=== PATIENT | male | born 1995 | race Caucasian/White ===

== ENCOUNTER 2018-04-25 13:07 | Inpatient (IN) | payer MEDICAID, OTHER ==
[2018-04-25 13:54] LABS: PLATELET COUNT 350 10^3/uL (150-400)
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
[2018-04-25] MEDS ORDERED: OLANZapine DISINTEGR 5 MG TAB PO ONE ×2 (16:25→17:04)
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
--- NOTE | 2018-04-25 19:13 | ASMTTCLDSP ---
TLC Discharge Disposition Disposition: Answers: Admit Disposition Notes: Notes: In consultation with [facility] ED physician, Bridger Ritchie MD and on-call psychiatrist, Sumanth Dickson MD, both concurred that pt appears to meet 27-65 criteria requiring psychiatric hospitalization as pt appears to be at risk of harm to others due to a mental illness condition. Was patient given the Answers: Yes Inpatient Behavioral Health Prohibited Belongings List while in the ED? For inpatient Sumanth Dickson MD admission, the following psychiatrist agreed to accept patient for admission to Behavioral Health ([facility]): Type of Hold: Answers: M1/72-hour Hold Hold initiated by: Answers: Police Date Signed: 04/25/2018 07:12 PM Electronically Signed By:Bridger Connelly
[2018-04-25] MEDS ORDERED: LORazepam 0.5 MG TAB PO PRN (22:27)
[2018-04-25] MEDS ORDERED: MAG HYDROX/AL HYDROX/SIMETH 30 ML UDCUP PO PRN (23:06)
[2018-04-25] MEDS ORDERED: MAGNESIUM HYDROXIDE 30 ML UDCUP PO PRN (23:06)
--- NOTE | 2018-04-26 08:41 | ASMTBHMTP ---
Master Treatment Plan Master Treatment Plan Answers: Impaired Reality for: Date: 04/26/2018 Diagnosis on Admission: Bipolar Disorder Expected length of stay: 3-5 Days Reason for admission: Notes: Per TLC Evaluation - Pt. is a 23 year old male, never marries, no children, unemployed, homeless, with history of bipolar disorder with psychotic features, presented to the ED via police on M1 hold. Pt. had been seen on campus for the last three days with a knife and alerts had been notified. Pt. presented to police after he found out his description had been given. Per the news report pt had been changing his clothes in between sightings. Per M1 Hold "Kristin stated, he was being followed by the Mafia; stated he was looking for help with his friend (a knife); called random people his friends, they did not know him. Stated his knife talks to him and that he is an alien. At times, pt. speaks nonsensically and in code and other times he speaks in an uninteruptedable rant like stream of consciousness tangental manner about the mafia, police, russians and drugs. Patient's stated presenting problems: Notes: People, lots of people. People that are good people but pop pills. Patient's goals for treatment: Notes: Get out Patient's strengths: Notes: Everything Identify supports outside of hospital: Notes: Anyone Discharge criteria: Notes: Psychotic symptoms will be reduced or eliminated with return to baseline functioning in affect, thinking and behavior prior to discharge. Initial disposition plan/considerations: Notes: Go back to where I was, in [place]. Master Treatment Plan Required Signatures Psychiatrist signature: Answers: Deb Abernathy MD: RN on-shift signature: Answers: RN: Patient signature: Answers: Patient: Date Signed: 04/26/2018 08:40 AM Electronically Signed By:Anne-Marie Bauer
--- NOTE | 2018-04-26 09:16 | PDMN ---
Medical Necessity Medical necessity: [facility] [id number] Bipolar Disorders, Adult, IP Care: 23 y/o w/ bipolar d/o, current episode manic severe w/ psychotic features. M1 hold
[2018-04-26] MEDS: OLANZapine DISINTEGR 5 MG TAB PO PRN (12:32)
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
[2018-04-27] MEDS: NICOTINE POLACRILEX 2 MG GUM B PRN ×3 (06:24→10:52)
[2018-04-27] MEDS: OLANZapine DISINTEGR 5 MG TAB PO PRN (09:01)
[2018-04-27] MEDS: ACETAMINOPHEN 325 MG TAB PO PRN (09:57)
[2018-04-27] MEDS: risperiDONE 0.25 MG TAB PO SCH (19:35)
--- NOTE | 2018-04-27 22:55 | SOAPPROG ---
SOAP Progress Note Assessment/Plan: Assessment: 23yo with 2nd inpt psych admission in 2 months due to psychosis. Clinically presents BMD manic with psychotic f although also reports drug use and stated he used some LSD and ecstasy prior to admit, and THC daily. Police involved, with campus wide alert, which was reported in local news about this pt prior to admission. Pt with no insight into why anyone would be afraid of him using a pocket knife to clean his fingernails. But also talked of [place] mafia, and being called an alien. 04/27/18 18:37 slept 10.5hr. Pt reports not much recall of details between ambulance and inpt psych. but states he did recall meeting yesterday. Wants to d/c soon b/c has plans to perform as a rapper, and also now will be missing the 2 models he met on [employer] who flew out from [place] to attend a concert with him in [place], which he now can't brain picker at the airport b/c in hosp. "I'm a millionaire...well I have minus $56 in my account...but I give all the money I make to the street performers on [address] b/c I want to keep them there , I tip my hat and $50 falls out for them". Then talked about plans to start his own rehab center, better than being in psych wen like here where no one is being treated well, with a drug you probably never heard of, no one knows about it, called "Hexin, it's like a combination cocaine/ketamine..." Really feels he needs someone to Rx Vyvanse. Tried it out on streets and it really helped for my ADHD. also mentions Adderall, strattera. And adds that Benzotropine (d/cd on this last admit) "made me less hyperactive." Informed he was in local paper and news after incident leading to admission. Pt still focusing on "who called" the police, instead of why and how concerning his behavior must have been. then talked of all the "really nice people" he met in the dorm, strangers, "I gave my cross necklace to a kendra I met in the [place]kee[place] (at ), that's how well we connected, and that's a big deal because I'm Jainism... The [place]ian tomás was trying to get me to sell coke for them, and when I said 'no', they thought I was a surgical endoscopist and threatened me with possession...I was carrying my friend's knife..." States his family has a lot of substance use and psych illness, gf and a great uncle suicided, older sis with BMD, "whole family is depressed", and 2 uncles did time for a murder they didn't do. States he was tested at 10yo and dxd with ADHD but never took meds b/c family didn't believe in that. MSE: initially cooperative, good ec, dressed casually wearing sweatshirt and loose flowered pants, nml speech vol but incr rate, talkative, arguing and raising voice when placed on STC, .mood "I don't need to be here", affect full, tp/tc- somewhat immature, with grandiose delusions about being millionaire, also drug themes, Russians. elevated self-esteem. tangential and illogical thought processes. insists if placed on STC he will "go back to using and be overdosed and by 26(yo)", but if released at end of 72hrs, "will give up drugs and never use again...it's up to you." denied any SI/HI or AH/VH. lacking any insight. poor judgment. cognition seems intact. DX; BMD manic with psychotic f r/o substance induced psychosis cannabis use d/o, also reports occasional and recent hallucinogen use PLAN: -Discussed M-1 expiring tomorrow noon. Discussed options to sign in, discharge or STC. Pt wants to leave. Continues manic and with no insight. Placed on STC and explained right to 3rd constitution party notif, legal representation. Given his complete lack of insight, and med n/c after d/c from prior hospital, consider transfer of STC to outpatient setting with dual dx treatment focus. Also has DUI with court date in 06/25-jean-claude, could be given probation involving mental health treatment compliance stated "I want the same intensive care nurse that came here on Sat, (Anneliese R) he was going to be mine at [facility]." Has been on STC before. Took zyprexa 10mg prn yesterday and again today. Continue prn. Discussed med options for his sxs and he agreed to risperdal or haldol. States Risperdal sounded familiar from trial at but thinks he had s/e. Agrees to try again. Apparently was d/cd from [facility] on Latuda 40mg, benzotropine 0.5mg and hydroyxzine prn. Start Risperdal 0.5mg bid lower dose to minimize risk of s/e. If tolerated and helpful, note this also avail in long-acting injectable form. Refuses any offer of mood stabilizing med such as Li or VPS. Pt was reported to be immediately n/ c with meds after d/c from [facility] last month, although stated he "liked the benzo one" which was Benzotropine. Also states he heard of Haldol that it was good, and so he wouldn't mind trying it. Did sign MAREK for mother, and [facility]. Collateral from [facility] in am. Objective: Vital Signs Temp Pulse Resp BP Pulse Ox 36.7 C 84 16 118/78 97 04/27/18 06:00 04/27/18 06:00 04/27/18 06:00 04/27/18 06:00 04/27/18 06:00 - Time Spent With Patient Time Spent With Patient: 35min - Pending Discharge Pending Discharge Within 24 Hours: No Pending Discharge Within 48 Hours: No ICD10 Worksheet Patient Problems: Problems Problem Status Onset Acute psychosis Acute
[2018-04-28] MEDS: risperiDONE 0.25 MG TAB PO SCH ×2 (08:20→21:07)
[2018-04-28] MEDS: ACETAMINOPHEN 325 MG TAB PO PRN (11:21)
[2018-04-28] MEDS ORDERED: LORazepam 0.5 MG TAB PO PRN (11:28)
[2018-04-28] MEDS: NICOTINE POLACRILEX 2 MG GUM B PRN ×2 (12:38→13:52)
--- NOTE | 2018-04-28 13:50 | SOAPPROG ---
SOAP Progress Note Assessment/Plan: Assessment: Bipolar I Disorder, severe, most recent margaret, with anxious distress and mood- congruent psychotic features, complicated by substance use. Alcohol use disorder, severe, Stimulant use disorder, severe, Cannabis use disorder, severe , Hallucinogen use disorder, severe (see subjective/objective note). Patient is not safe to discharge at this time as patient continues to exhibit signs of margaret, and express margaret symptoms. Patient requires continued inpatient care because of current margaret, and requires inpatient level of care to stabilize in order to no longer be gravely disabled. Patient could benefit from continued inpatient hospitalization for crisis stabilization, safety, and medication evaluation. Patient could benefit from trial of Depakote ER for bipolar maintenance, to reduce likelihood of rehospitalization. Patient could benefit from referral to substance abuse treatment after discharge. Plan: (1) Psychotropic medications: After reviewing options, risks, and benefits patient agrees to continue current medications with following changes: Begin trial of Depakote ER 1,500 mg po QHS. Increase Risperidone to 1 mg BID. No other medication changes at this time as more time is needed to determine ongoing tolerability and efficacy. Plan is to continue to observe patient for response and side effects from medications, and ongoing monitoring and evaluation. (2) Review with patient informed consent and recommendations for psychotropic medication treatment listed below (3) Labs: VPA level Saturday AM (4) Therapy: continue milieu and group therapy (5) Further investigation including gathering information from patients relatives and review of past case records to inform treatment plan. (6) Safety/Wellness plan and follow-up outpatient appointments to be established prior to discharge. Next steps are for patient to meet with manager critical care to plan a safe discharge plan and establish outpatient services for ongoing treatment. (7) Confer with inpatient treatment team regarding treatment plan. (8) Legal status: [facility] (9) Consider discharge on if patient is in stable condition, safe, and has a safe discharge plan. (10) Substance abuse interventions: cannabis, alcohol/binge drinking, cocaine, methamphetamine, and hallucinogens PSYCHOTROPIC MEDICATION TREATMENT INFORMED CONSENT and RECOMMENDATIONS: Review nature of condition, diagnosis, and prognosis. Review nature and purpose of psychotropic medication treatment. Review type of psychotropic medications being ordered. Review risk and benefits of psychotropic medication treatment. Review probable length of time patient will need to take medications. Review risk and benefits of not undergoing psychotropic medication treatment. Review alternative treatments to psychotropic medications. Review psychotropic medications contraindications, drug-drug interactions, side effects, and importance of reporting any side effects to a psychiatric provider or nurse during inpatient hospitalization, and upon discharge to patients psychiatric outpatient provider, primary care provider, or other health resident care manager rn. Review importance of asking a nurse, psychiatric provider, or primary care provider any questions or problems concerning the psychotropic medications. Verify patient understands the information that has been provided, and understands, accepts, and agrees to psychotropic medications. Review patients safety plan and importance of patient to report to staff while hospitalized if patient is ever a danger to self/others, or unable to care for self, and upon discharge, the importance for patient to contact [facility] or [facility], or go to the nearest emergency room, if patient is ever a danger to self/others, or unable to care for self. Recommend that upon discharge patient establish medication management treatment with a psychiatric provider, establishes routine therapy appointments, and follow-up with primary care provider. Verify patient understands and agrees to these recommendations. 04/28/18 13:50 Subjective: Following up with patient for evaluation of margaret and safety. Patient reports, "Have no idea why I am here, I was just cleaning my finger nails with a pocket knife at ." Patient expresses the following psychiatric symptoms none. Patient reports taking medications as prescribed, and describes response to medications as good. Patient does not report undesirable side effects from the medications, and agrees to continue current medications. Patient reports appetite as good, and reports eating all meals. Patient describes 8 hours of sleep. Patient reports history of margaret episodes that last 5-6 days and occur about once every other month. Patient agrees to trial of Depakote ER 1,500 mg po QHS for bipolar maintenance. Patient agrees with plan to be on a mood stabilizer, Depakote, and to continue this medication after discharge to prevent decompensation, margaret, and likelihood of rehospitalization. Patient reports he was using "THC, cocaine, and Mayela" prior to his admission. Patient reports he was "on Mayela" when engaged by police at prior to his admission. Patient reports a long history of polysubstance abuse and reports he has a " mild substance abuse issue." Objective: Vital Signs Temp Pulse Resp BP Pulse Ox 36.3 C 74 16 122/90 H 98 04/28/18 06:00 04/28/18 06:00 04/28/18 06:00 04/28/18 06:00 04/28/18 06:00 NURSING REPORT: Consulted with nursing for update on patients progress in treatment. Nurses report patient is engaged in treatment, is attending groups, slept 9 hours, expresses the following psychiatric symptoms: severe anxiety, irritable; exhibits the following psychiatric symptoms: irritable, agitated, intrusive, grandiose, hyper-talkative; is eating all meals, is attending to ADLs , is taking medications as prescribed with no report of side effects, with no s/ s of EPS/akathisia, and denies SI/HI, denies A/V hallucinations, denies delusions. MSE: The patient presents casually dressed and with good hygiene, and looks stated age. Patient is sitting, posture is upright, and position is tense. Patient appears awake, alert, and responds appropriately and reasonably during interview. Patient is engaged, relates well to interviewer, and emotional facial expression is appropriate to situation and changes appropriately with topic. Patient is cooperative, makes comfortable eye contact, and movements are voluntary, deliberate, coordinated, and smooth and even with no inappropriate movements. Patient makes laryngeal sounds effortlessly and does not share conversation appropriately, often interrupting this MANAGER AVIATION; pace of conversation is rapid, and stream of talking is pressured; articulation is clear and understandable; word choice is effortless and appropriate for education level; completes sentences, rate is pressured and volume are appropriate. Patient reports mood as euthymic. Patients affect is expansive, and incongruent with mood. Patient has non-linear and illogical thinking, with loose associations, tangential thought, and grandiose. Patient denies suicidal and homicidal ideation, and denies hallucinations and delusions. Patient appears to be a poor historian with poor judgement and poor insight into current condition. Patient has no apparent dysfunction in recent or remote memory noted, and no evidence of gross cognitive dysfunction noted at any point during the interview. SUBSTANCE ABUSE BRIEF INTERVENTION: Brief intervention regarding the risks of cannabis, alcohol, cocaine, hallucinogens, and methamphetamine abuse is provided to patient with goal to reduce the risk of harm that could result from the continued use of these substances, with the general aim to investigate the problem, raise awareness of problem, develop a solution with the patient, recommend a specific change or activity, and motivate the patient toward change. Assess substance abuse behavior and give supportive advice about harm reduction, recommend a reduction in hazardous/at-risk consumption patterns, and facilitate referrals for additional specialized treatment with doggy daycare activities director. Intermediate goal is for the patient to quit use of substances and attend OP substance abuse treatment. Intervention focus on intermediate goals to allow for more immediate success in the treatment process to keep the patient motivated. Review following with patient: Cannabis use risks: Short- term use: impaired short-term memory, impaired motor coordination, altered judgement, in high doses paranoia and psychosis. Long-term use addiction, diminished life satisfaction and achievement, symptoms of chronic bronchitis, and increased risk of chronic psychosis disorders if predisposition to such disorders. In withdrawal anger, aggression irritability, anxiety and nervousness, decreased appetite or weight loss, restlessness, and sleep difficulties with strange dreams. Alcohol/Binge Drinking risks: short-term: injuries, violence, alcohol poisoning, risky sexual behaviors. Long-term: high blood pressure, stroke, liver disease, digestive problems, cancer, learning and memory problems, depression and anxiety, social problems, and alcohol dependence. Cocaine use risks: Short-term: erratic and violent behavior, panic attacks, paranoia, psychosis; heart rhythm problems, heart attack; stroke, seizure, coma. Long-term: Loss of sense of smell, nosebleeds, nasal damage and trouble swallowing from snorting; infection and of bowel tissue from decreased blood flow; poor nutrition and weight loss; lung damage from smoking. Methamphetamine use risks: Short-term: insomnia, irritability, aggressive behavior, hallucinations, delusions, intellectual deficits, anxiety, depression , convulsions, damage to blood vessels in the brain causing strokes, high fevers , collapse of the circulatory system. Long-term: damage to nerve pathways, maybe irreversibly; overstimulation to dopamine impairing dopamine transport and reducing efficiency of dopamine receptors, the reward system becomes worn out, leading to inability to experience pleasure for years. Patient reports he has a "mild" substance abuse history and reports he plans to continue to use THC daily. He states he will consider substance abuse treatment after discharge. - Time Spent With Patient Time Spent With Patient: 30 minutes, met with patient individually and with patient and treatment team. - Pending Discharge Pending Discharge Within 24 Hours: No Pending Discharge Within 48 Hours: No ICD10 Worksheet Patient Problems: Problems Problem Status Onset Acute psychosis Acute
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
[2018-04-28] MEDS: DIVALPROEX ER 500 MG TAB PO SCH (21:08)
--- NOTE | 2018-04-29 07:56 | SOAPPROG ---
SOAP Progress Note Assessment/Plan: Assessment: Bipolar I Disorder, severe, most recent margaret, with anxious distress and mood- congruent psychotic features, complicated by substance use. Alcohol use disorder, severe, Stimulant use disorder, sever, Cannabis use disorder, severe, Hallucinogen use disorder (see subjective/objective note). Patient is not safe to discharge at this time as patient continues to exhibit signs of margaret, and express margaret symptoms. Patient requires continued inpatient care because of current margaret, and requires inpatient level of care to stabilize in order to no longer be gravely disabled. Patient could benefit from continued inpatient hospitalization for crisis stabilization, safety, and medication evaluation. Patient could benefit from trial of Depakote ER for bipolar maintenance, to reduce likelihood of rehospitalization. Patient could benefit from referral to substance abuse treatment after discharge. Based on current presentation, consider discharge Saturday if patient is stable and has a safe discharge plan including referrals to outpatient substance abuse treatment. Plan: (1) Psychotropic medications: After reviewing options, risks, and benefits patient agrees to continue current medications with following changes: Discontinue Ativan. No other medication changes at this time as more time is needed to determine ongoing tolerability and efficacy. Plan is to continue to observe patient for response and side effects from medications, and ongoing monitoring and evaluation. (2) Review with patient informed consent and recommendations for psychotropic medication treatment listed below (3) Labs: VPA level Saturday AM (4) Therapy: continue milieu and group therapy (5) Further investigation including gathering information from patients relatives and review of past case records to inform treatment plan. (6) Safety/Wellness plan and follow-up outpatient appointments to be established prior to discharge. Next steps are for patient to meet with manager critical care to plan a safe discharge plan and establish outpatient services for ongoing treatment. (7) Confer with inpatient treatment team regarding treatment plan. (8) Legal status: [facility] (9) Consider discharge on Saturday if patient is in stable condition, safe, and has a safe discharge plan. (10) Substance abuse interventions: cannabis, alcohol/binge drinking, cocaine, methamphetamine, and hallucinogens PSYCHOTROPIC MEDICATION TREATMENT INFORMED CONSENT and RECOMMENDATIONS: Review nature of condition, diagnosis, and prognosis. Review nature and purpose of psychotropic medication treatment. Review type of psychotropic medications being ordered. Review risk and benefits of psychotropic medication treatment. Review probable length of time patient will need to take medications. Review risk and benefits of not undergoing psychotropic medication treatment. Review alternative treatments to psychotropic medications. Review psychotropic medications contraindications, drug-drug interactions, side effects, and importance of reporting any side effects to a psychiatric provider or nurse during inpatient hospitalization, and upon discharge to patients psychiatric outpatient provider, primary care provider, or other health home care provider. Review importance of asking a nurse, psychiatric provider, or primary care provider any questions or problems concerning the psychotropic medications. Verify patient understands the information that has been provided, and understands, accepts, and agrees to psychotropic medications. Review patients safety plan and importance of patient to report to staff while hospitalized if patient is ever a danger to self/others, or unable to care for self, and upon discharge, the importance for patient to contact [facility] or [facility], or go to the nearest emergency room, if patient is ever a danger to self/others, or unable to care for self. Recommend that upon discharge patient establish medication management treatment with a psychiatric provider, establishes routine therapy appointments, and follow-up with primary care provider. Verify patient understands and agrees to these recommendations. 04/29/18 07:57 Subjective: Following up with patient for evaluation of margaret and safety. Patient reports, "Feeling better, slept well last night, had a weird dream though. Check this out, I ran into someone that knows me by my rapper name." Patient expresses the following psychiatric symptoms none. Patient reports taking medications as prescribed, and describes response to medications as good. Patient does not report undesirable side effects from the medications, and agrees to continue current medications. Patient reports appetite as good, and reports eating all meals. Patient describes 8 hours of sleep, and reports feeling well rested. Objective: Vital Signs Temp Pulse Resp BP Pulse Ox 36.5 C 100 15 141/95 H 98 04/29/18 06:00 04/29/18 06:00 04/29/18 06:00 04/29/18 06:00 04/29/18 06:00 NURSING REPORT: Consulted with nursing for update on patients progress in treatment. Nurses report patient is engaged in treatment, is attending groups, slept 7.5 hours, expresses the following psychiatric symptoms: moderate anxiety ; exhibits the following psychiatric symptoms: irritable, agitated, intrusive, grandiose, hyper-talkative, hyperactive on the unit; is eating all meals, is attending to ADLs, is taking medications as prescribed with no report of side effects, with no s/s of EPS/akathisia, and denies SI/HI, denies A/V hallucinations, denies delusions. MSE: The patient presents casually dressed and with good hygiene, and looks stated age. Patient is sitting, posture is upright, and position is tense. Patient appears awake, alert, and responds appropriately and reasonably during interview. Patient is engaged, relates well to interviewer, and emotional facial expression is appropriate to situation and changes appropriately with topic. Patient is cooperative, makes comfortable eye contact, and movements are voluntary, deliberate, coordinated, and smooth and even with no inappropriate movements. Patient makes laryngeal sounds effortlessly and does not share conversation appropriately, often interrupting this CUSTOMER SERVICE CLERK; pace of conversation is rapid, and stream of talking is pressured; articulation is clear and understandable; word choice is effortless and appropriate for education level; completes sentences, rate is pressured and volume are appropriate. Patient reports mood as euthymic. Patients affect is expansive, and incongruent with mood. Patient has non-linear and illogical thinking, with loose associations, tangential thought, and grandiose. Patient denies suicidal and homicidal ideation, and denies hallucinations and delusions. Patient appears to be a poor historian with poor judgement and poor insight into current condition. Patient has no apparent dysfunction in recent or remote memory noted, and no evidence of gross cognitive dysfunction noted at any point during the interview. SUBSTANCE ABUSE BRIEF INTERVENTION: Brief intervention regarding the risks of cannabis, alcohol, cocaine, hallucinogens, and methamphetamine abuse is provided to patient with goal to reduce the risk of harm that could result from the continued use of these substances, with the general aim to investigate the problem, raise awareness of problem, develop a solution with the patient, recommend a specific change or activity, and motivate the patient toward change. Assess substance abuse behavior and give supportive advice about harm reduction, recommend a reduction in hazardous/at-risk consumption patterns, and facilitate referrals for additional specialized treatment with resident care supervisor. Intermediate goal is for the patient to quit use of substances and attend OP substance abuse treatment. Intervention focus on intermediate goals to allow for more immediate success in the treatment process to keep the patient motivated. Review following with patient: Cannabis use risks: Short- term use: impaired short-term memory, impaired motor coordination, altered judgement, in high doses paranoia and psychosis. Long-term use addiction, diminished life satisfaction and achievement, symptoms of chronic bronchitis, and increased risk of chronic psychosis disorders if predisposition to such disorders. In withdrawal anger, aggression irritability, anxiety and nervousness, decreased appetite or weight loss, restlessness, and sleep difficulties with strange dreams. Alcohol/Binge Drinking risks: short-term: injuries, violence, alcohol poisoning, risky sexual behaviors. Long-term: high blood pressure, stroke, liver disease, digestive problems, cancer, learning and memory problems, depression and anxiety, social problems, and alcohol dependence. Cocaine use risks: Short-term: erratic and violent behavior, panic attacks, paranoia, psychosis; heart rhythm problems, heart attack; stroke, seizure, coma. Long-term: Loss of sense of smell, nosebleeds, nasal damage and trouble swallowing from snorting; infection and of bowel tissue from decreased blood flow; poor nutrition and weight loss; lung damage from smoking. Methamphetamine use risks: Short-term: insomnia, irritability, aggressive behavior, hallucinations, delusions, intellectual deficits, anxiety, depression , convulsions, damage to blood vessels in the brain causing strokes, high fevers , collapse of the circulatory system. Long-term: damage to nerve pathways, maybe irreversibly; overstimulation to dopamine impairing dopamine transport and reducing efficiency of dopamine receptors, the reward system becomes worn out, leading to inability to experience pleasure for years. Hallucinogen use risks: paranoia, psychosis, speech problems, memory loss, weight loss, anxiety, and depression and suicidal thoughts. Patient does not respond well to substance abuse intervention and has poor insight regarding his substance use. Patient reports, "I may have a mild substance abuse issue. I am definitely going to continue to use THC." - Time Spent With Patient Time Spent With Patient: 15 minutes, met with patient individually. - Pending Discharge Pending Discharge Within 24 Hours: No Pending Discharge Within 48 Hours: No ICD10 Worksheet Patient Problems: Problems Problem Status Onset Acute psychosis Acute Cannabis use disorder, severe, dependence Acute Hallucinogen use Acute Severe manic bipolar I disorder w/psychotic features, mood-congruent Acute Stimulant use disorder Acute
[2018-04-29] MEDS: risperiDONE 0.25 MG TAB PO SCH ×2 (08:49→20:01)
[2018-04-29] MEDS: ACETAMINOPHEN 325 MG TAB PO PRN ×2 (11:02→15:36)
[2018-04-29] MEDS: NICOTINE POLACRILEX 2 MG GUM B PRN (13:22)
[2018-04-29] MEDS: NICOTINE 21 MG/24 HR PATCH TD SCH (14:07)
[2018-04-29] MEDS: GABAPENTIN 400 MG CAP PO SCH ×2 (15:37→20:01)
[2018-04-29] MEDS: DIVALPROEX ER 500 MG TAB PO SCH (20:00)
--- NOTE | 2018-04-30 07:29 | SOAPPROG ---
SOAP Progress Note Assessment/Plan: Assessment: Bipolar I Disorder, severe, most recent margaret, with anxious distress and mood- congruent psychotic features, complicated by substance use. Alcohol use disorder, severe, Stimulant use disorder, severe, Cannabis use disorder, severe , Hallucinogen use disorder, severe (see subjective/objective note). Patient is not safe to discharge at this time as patient continues to exhibit signs of margaret, and express margaret symptoms. Patient requires continued inpatient care because of current margaret, and requires inpatient level of care to stabilize in order to no longer be gravely disabled. Patient could benefit from continued inpatient hospitalization for crisis stabilization, safety, and medication evaluation. Patient could benefit from trial of Depakote ER for bipolar maintenance, to reduce likelihood of rehospitalization. Patient could benefit from referral to substance abuse treatment after discharge. Based on current presentation, consider discharge if patient is stable and has a safe discharge plan including referrals to outpatient substance abuse treatment. Plan: (1) Psychotropic medications: After reviewing options, risks, and benefits patient agrees to continue current medications with following changes: Discontinue Ativan. No other medication changes at this time as more time is needed to determine ongoing tolerability and efficacy. Plan is to continue to observe patient for response and side effects from medications, and ongoing monitoring and evaluation. (2) Review with patient informed consent and recommendations for psychotropic medication treatment listed below (3) Labs: VPA level AM (4) Therapy: continue milieu and group therapy (5) Further investigation including gathering information from patients relatives and review of past case records to inform treatment plan. (6) Safety/Wellness plan and follow-up outpatient appointments to be established prior to discharge. Next steps are for patient to meet with daytime caregiver to plan a safe discharge plan and establish outpatient services for ongoing treatment. (7) Confer with inpatient treatment team regarding treatment plan. (8) Legal status: [facility] (9) Consider discharge on Saturday if patient is in stable condition, safe, and has a safe discharge plan. (10) Substance abuse interventions: cannabis, alcohol/binge drinking, cocaine, methamphetamine, and hallucinogens PSYCHOTROPIC MEDICATION TREATMENT INFORMED CONSENT and RECOMMENDATIONS: Review nature of condition, diagnosis, and prognosis. Review nature and purpose of psychotropic medication treatment. Review type of psychotropic medications being ordered. Review risk and benefits of psychotropic medication treatment. Review probable length of time patient will need to take medications. Review risk and benefits of not undergoing psychotropic medication treatment. Review alternative treatments to psychotropic medications. Review psychotropic medications contraindications, drug-drug interactions, side effects, and importance of reporting any side effects to a psychiatric provider or nurse during inpatient hospitalization, and upon discharge to patients psychiatric outpatient provider, primary care provider, or other health home care chaplain. Review importance of asking a nurse, psychiatric provider, or primary care provider any questions or problems concerning the psychotropic medications. Verify patient understands the information that has been provided, and understands, accepts, and agrees to psychotropic medications. Review patients safety plan and importance of patient to report to staff while hospitalized if patient is ever a danger to self/others, or unable to care for self, and upon discharge, the importance for patient to contact [facility] or [facility], or go to the nearest emergency room, if patient is ever a danger to self/others, or unable to care for self. Recommend that upon discharge patient establish medication management treatment with a psychiatric provider, establishes routine therapy appointments, and follow-up with primary care provider. Verify patient understands and agrees to these recommendations. 04/30/18 07:29 Subjective: Following up with patient for evaluation of margaret and safety. Patient reports, "Feel much better, less anxious. Slept well last night." Patient expresses the following psychiatric symptoms moderate anxiety. Patient reports taking medications as prescribed, and describes response to medications as good. Patient does not report undesirable side effects from the medications, and agrees to continue current medications. Patient reports appetite as good, and reports eating all meals. Patient describes 8 hours of sleep, and reports feeling well rested. Objective: Vital Signs Temp Pulse Resp BP Pulse Ox 36.4 C 59 L 16 118/71 98 04/30/18 06:00 04/30/18 06:00 04/30/18 06:00 04/30/18 06:00 04/30/18 06:00 NURSING REPORT: Consulted with nursing for update on patients progress in treatment. Nurses report patient is engaged in treatment, is attending groups, slept 9.5 hours, expresses the following psychiatric symptoms: moderate anxiety ; exhibits the following psychiatric symptoms: anxious, pacing halls periodically during the day, is appropriate with staff and other patients; is eating all meals, is attending to ADLs, is taking medications as prescribed with no report of side effects, with no s/s of EPS/akathisia, and denies SI/HI, denies A/V hallucinations, denies delusions. MSE: The patient presents casually dressed and with good hygiene, and looks stated age. Patient is sitting, posture is upright, and position is relaxed. Patient appears awake, alert, and responds appropriately and reasonably during interview. Patient is engaged, relates well to interviewer, and emotional facial expression is appropriate to situation and changes appropriately with topic. Patient is cooperative, makes comfortable eye contact, and movements are voluntary, deliberate, coordinated, and smooth and even with no inappropriate movements. Patient makes laryngeal sounds effortlessly and shares conversation appropriately; pace of conversation is appropriate, and stream of talking is normal; articulation is clear and understandable; word choice is effortless and appropriate for education level; completes sentences, rate and rhythm are normal. Patient reports mood as okay. Patients affect is euthymic, and congruent with mood. Patient has linear and logical thinking, with no loose associations, tangential thought, and less grandiose. Patient denies suicidal and homicidal ideation, and denies hallucinations and delusions. Patient appears to be a poor historian with poor judgement and poor insight into current condition. Patient has no apparent dysfunction in recent or remote memory noted, and no evidence of gross cognitive dysfunction noted at any point during the interview. SUBSTANCE ABUSE BRIEF INTERVENTION: Brief intervention regarding the risks of cannabis, alcohol, cocaine, hallucinogens, and methamphetamine abuse is provided to patient with goal to reduce the risk of harm that could result from the continued use of these substances, with the general aim to investigate the problem, raise awareness of problem, develop a solution with the patient, recommend a specific change or activity, and motivate the patient toward change. Assess substance abuse behavior and give supportive advice about harm reduction, recommend a reduction in hazardous/at-risk consumption patterns, and facilitate referrals for additional specialized treatment with home health care social worker. Intermediate goal is for the patient to quit use of substances and attend OP substance abuse treatment. Intervention focus on intermediate goals to allow for more immediate success in the treatment process to keep the patient motivated. Review following with patient: Cannabis use risks: Short- term use: impaired short-term memory, impaired motor coordination, altered judgement, in high doses paranoia and psychosis. Long-term use addiction, diminished life satisfaction and achievement, symptoms of chronic bronchitis, and increased risk of chronic psychosis disorders if predisposition to such disorders. In withdrawal anger, aggression irritability, anxiety and nervousness, decreased appetite or weight loss, restlessness, and sleep difficulties with strange dreams. Alcohol/Binge Drinking risks: short-term: injuries, violence, alcohol poisoning, risky sexual behaviors. Long-term: high blood pressure, stroke, liver disease, digestive problems, cancer, learning and memory problems, depression and anxiety, social problems, and alcohol dependence. Cocaine use risks: Short-term: erratic and violent behavior, panic attacks, paranoia, psychosis; heart rhythm problems, heart attack; stroke, seizure, coma. Long-term: Loss of sense of smell, nosebleeds, nasal damage and trouble swallowing from snorting; infection and of bowel tissue from decreased blood flow; poor nutrition and weight loss; lung damage from smoking. Methamphetamine use risks: Short-term: insomnia, irritability, aggressive behavior, hallucinations, delusions, intellectual deficits, anxiety, depression , convulsions, damage to blood vessels in the brain causing strokes, high fevers , collapse of the circulatory system. Long-term: damage to nerve pathways, maybe irreversibly; overstimulation to dopamine impairing dopamine transport and reducing efficiency of dopamine receptors, the reward system becomes worn out, leading to inability to experience pleasure for years. Hallucinogen use risks: paranoia, psychosis, speech problems, memory loss, weight loss, anxiety, and depression and suicidal thoughts. Patient responds fairly well to intervention, reports he plans to continue to use THC daily. - Time Spent With Patient Time Spent With Patient: 15 minutes, met with patient individually. - Pending Discharge Pending Discharge Within 24 Hours: Yes Pending Discharge Within 48 Hours: No Pending Discharge Date: 05/01/18 Pending Discharge Time: 11:00 ICD10 Worksheet Patient Problems: Problems Problem Status Onset Acute psychosis Acute Cannabis use disorder, severe, dependence Acute Hallucinogen use Acute Severe manic bipolar I disorder w/psychotic features, mood-congruent Acute Stimulant use disorder Acute
[2018-04-30] MEDS: risperiDONE 0.25 MG TAB PO SCH ×2 (08:44→19:58)
[2018-04-30] MEDS: NICOTINE POLACRILEX 2 MG GUM B PRN ×3 (08:44→19:59)
[2018-04-30] MEDS: NICOTINE 21 MG/24 HR PATCH TD SCH (08:44)
[2018-04-30] MEDS: GABAPENTIN 400 MG CAP PO SCH (08:44)
[2018-04-30] MEDS: ACETAMINOPHEN 325 MG TAB PO PRN (09:46)
[2018-04-30] MEDS ORDERED: GABAPENTIN 400 MG CAP PO SCH (15:24)
[2018-04-30] MEDS: GABAPENTIN 300 MG CAP PO SCH ×2 (16:44→20:03)
[2018-04-30] MEDS: DIVALPROEX ER 500 MG TAB PO SCH (19:58)
[2018-05-01 06:48] VITALS: BP 116/55
[2018-05-01] MEDS: NICOTINE 21 MG/24 HR PATCH TD SCH (08:11)
[2018-05-01] MEDS: risperiDONE 0.25 MG TAB PO SCH (08:11)
[2018-05-01] MEDS: GABAPENTIN 300 MG CAP PO SCH ×2 (08:11→15:23)
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
== END 2018-05-01 15:40 | disposition home or self-care (01) | DRG 885 ==
LOC: BBEH 20:50
PROVIDERS: ADMIT Psychiatry & Neurology Behavioral Neurology & Neuropsychiatry; ATTEND Psychiatry & Neurology Behavioral Neurology & Neuropsychiatry
DX: F31.2 Bipolar disorder, current episode manic severe with psychotic features (principal); F12.959 Cannabis use, unspecified with psychotic disorder, unspecified; F15.959 Other stimulant use, unspecified with stimulant-induced psychotic disorder, unspecified; F16.959 Hallucinogen use, unspecified with hallucinogen-induced psychotic disorder, unspecified; F90.9 Attention-deficit hyperactivity disorder, unspecified type; T43.506A Underdosing of unspecified antipsychotics and neuroleptics, initial encounter; Z59.0 Homelessness
CPT/HCPCS: 80305; G0480

== ENCOUNTER 2018-05-13 13:17 | Emergency (ER) | payer MEDICAID ==
[2018-05-13 14:10] LABS: PLATELET COUNT 284 10^3/uL (150-400)
--- NOTE | 2018-05-13 14:15 | EDPHY ---
H & P Stated Complaint: wants mental health eval Source: Patient Exam Limitations: No limitations - Personal History Current Tetanus/Diphtheria Vaccine: Unsure Current Tetanus Diphtheria and Acellular Pertussis (TDAP): Unsure - Medical/Surgical History Hx Asthma: No Hx Chronic Respiratory Disease: No Hx Diabetes: No Hx Cardiac Disease: No Hx Renal Disease: No Hx Cirrhosis: No Hx Alcoholism: No Hx HIV/AIDS: No Hx Splenectomy or Spleen Trauma: No Other PMH: bipolar, psychosis, ADHD, polysubstance - Family History Significant Family History: No pertinent family hx - Social History Smoking Status: Current every day smoker Alcohol Use: Sober Drug Use: Other Time Seen by Provider: 05/13/18 14:03 HPI/ROS: CHIEF COMPLAINT: Parents want him to talk to mental health HISTORY OF PRESENT ILLNESS: The patient is a 23-year-old man with history of bipolar disorder with psychotic features and attention deficit hyperactivity disorder and polysubstance abuse who was admitted to [facility] 2 weeks ago. On discharge she was sent to halfway where he has been until last night. Upon being released is parents wanted him to talk to therapist to make sure he takes his medications and try and avoid getting back on substances. They state that the court told him to come [facility]. The patient does take Respirdal and gabapentin as prescribed. He also takes Depakote although he states he takes less than prescribed because it makes him too sleepy. He is not suicidal. He is not hallucinating. He has no acute complaints Severity: Moderate Modifying factors: None REVIEW OF SYSTEMS: Constitutional: denies: chills, fever, recent illness, recent injury EENTM: denies: blurred vision, double vision, nose congestion Respiratory: denies: cough, shortness of breath Cardiac: denies: chest pain, irregular heart rate, lightheadedness, palpitations Gastrointestinal/Abdominal: denies: abdominal pain, diarrhea, nausea, vomiting, blood streaked stools Genitourinary: denies: dysuria, frequency, hematuria, pain Musculoskeletal: denies: joint pain, muscle pain Skin: denies: lesions, rash, jaundice, bruising Neurological: denies: headache, numbness, paresthesia, tingling, dizziness, weakness Hematologic/Lymphatic: denies: blood clots, easy bleeding, easy bruising Immunologic/allergic: denies: HIV/AIDS, transplant 10 systems reviewed and negative except as noted EXAM: GENERAL: Well-appearing, well-nourished and in no acute distress. HEAD: Atraumatic, normocephalic. EYES: Pupils equal round and reactive to light, extraocular movements intact, sclera anicteric, conjunctiva are normal. ENT: TMs normal, nares patent, oropharynx clear without exudates. Moist mucous membranes. NECK: Normal range of motion, supple without lymphadenopathy or JVD. LUNGS: Breath sounds clear to auscultation bilaterally and equal. No wheezes rales or rhonchi. HEART: Regular rate and rhythm without murmurs, rubs or gallops. ABDOMEN: Soft, nontender, normoactive bowel sounds. No guarding, no rebound. No masses appreciated. BACK: No CVA tenderness, no spinal tenderness, step-offs or deformities EXTREMITIES: Normal range of motion, no pitting or edema. No clubbing or cyanosis. NEUROLOGICAL: Cranial nerves II through XII grossly intact. Normal speech, normal gait. 5/5 strength, normal movement in all extremities, normal sensation , normal reflexes PSYCH: Normal mood, normal affect. SKIN: Warm, dry, normal turgor, no visible rashes or lesions. (Julito Acosta) Constitutional: Initial Vital Signs Temperature (C) 36.3 C 05/13/18 13:23 Heart Rate 114 H 05/13/18 13:23 Respiratory Rate 16 05/13/18 13:23 Blood Pressure 105/61 05/13/18 13:23 O2 Sat (%) 97 05/13/18 13:23 O2 Delivery Mode Room Air Allergies/Adverse Reactions: No Known Allergies Allergy (Verified 05/13/18 13:21) Home Medications: Medication Instructions Recorded Divalproex [Depakote] 2,000 mg PO HS 30 Days #120 tab 05/01/18 Gabapentin 600 mg PO TID 30 Days #90 tablet 05/01/18 Risperidone 2 mg PO HS 30 Days #30 tablet 05/01/18 Medical Decision Making ED Course/Re-evaluation: Patient is medically cleared. He is not on a hold her detainer. We discussed possibly letting the patient go to the crisis Center to speak with [facility] however parents are concerned that he will not go. They are primarily looking for intervention to try and keep him from returning to substance abuse. [facility] is willing to come evaluate the patient. Care transferred to Dr. Kay at shift change. (Julito Acosta) Differential Diagnosis: Partial list of the Differential diagnosis considered include but were not limited to; bipolar, substance abuse and although unlikely based on the history and physical exam, I also considered infection, head injury, schizophrenia. (Julito Acosta) Other Provider: I assumed care of the patient at 3:30pm Update at 9:00 p.m.: The patient was evaluated by Mental Health. The patient will be admitted for involuntary psychiatric hospitalization at [facility] under the care of Dr. Abernathy. I have filled out the EMTALA transfer form. (Nba Kay) - Data Points Laboratory Results: Laboratory Results 05/13/18 13:30 05/13/18 13:30 05/13/18 05/13/18 05/13/18 13:50 13:30 13:30 WBC RBC Hgb Hct MCV MCH MCHC RDW Plt Count MPV Neut % (Auto) Lymph % (Auto) Pickett % (Auto) Eos % (Auto) Baso % (Auto) Nucleat RBC Rel Count Absolute Neuts (auto) Absolute Lymphs (auto) Absolute Monos (auto) Absolute Eos (auto) Absolute Basos (auto) Absolute Nucleated RBC Immature Gran % Immature Gran # Sodium 139 mEq/L mEq/L (135-145) Potassium 4.4 mEq/L mEq/L (3.3-5.0) Chloride 104 mEq/L mEq/L (97-110) Carbon Dioxide 24 mEq/l mEq/l (22-31) Anion Gap 11 mEq/L mEq/L (8-16) BUN 14 mg/dL mg/dL (7-23) Creatinine 0.8 mg/dL mg/dL (0.7-1.3) Estimated GFR > 60 Glucose 90 mg/dL mg/dL (70-100) Calcium 9.3 mg/dL mg/dL (8.5-10.4) Urine Opiates Screen NEGATIVE (NEGATIVE) Urine Barbiturates NEGATIVE (NEGATIVE) Valproic Acid 19.1 mcg/mL L mcg/mL (50.0-150.0) Ur Phencyclidine Scrn NEGATIVE (NEGATIVE) Ur Amphetamine Screen NEGATIVE (NEGATIVE) U Benzodiazepines Scrn NON-NEGATIVE H (NEGATIVE) Urine Cocaine Screen NEGATIVE (NEGATIVE) U Marijuana (THC) Screen NEGATIVE (NEGATIVE) Ethyl Alcohol < 10 mg/dL mg/dL (0-10) 05/13/18 13:30 WBC 10.78 10^3/uL H 10^3/uL (3.80-9.50) RBC 4.90 10^6/uL 10^6/uL (4.40-6.38) Hgb 15.1 g/dL g/dL (13.7-17.5) Hct 41.9 % % (40.0-51.0) MCV 85.5 fL fL (81.5-99.8) MCH 30.8 pg pg (27.9-34.1) MCHC 36.0 g/dL g/dL (32.4-36.7) RDW 11.6 % % (11.5-15.2) Plt Count 284 10^3/uL 10^3/uL (150-400) MPV 9.3 fL fL (8.7-11.7) Neut % (Auto) 57.9 % % (39.3-74.2) Lymph % (Auto) 25.1 % % (15.0-45.0) Pickett % (Auto) 11.7 % % (4.5-13.0) Eos % (Auto) 4.2 % % (0.6-7.6) Baso % (Auto) 0.7 % % (0.3-1.7) Nucleat RBC Rel Count 0.0 % % (0.0-0.2) Absolute Neuts (auto) 6.24 10^3/uL 10^3/uL (1.70-6.50) Absolute Lymphs (auto) 2.71 10^3/uL 10^3/uL (1.00-3.00) Absolute Monos (auto) 1.26 10^3/uL H 10^3/uL (0.30-0.80) Absolute Eos (auto) 0.45 10^3/uL H 10^3/uL (0.03-0.40) Absolute Basos (auto) 0.08 10^3/uL 10^3/uL (0.02-0.10) Absolute Nucleated RBC 0.00 10^3/uL 10^3/uL (0-0.01) Immature Gran % 0.4 % % (0.0-1.1) Immature Gran # 0.04 10^3/uL 10^3/uL (0.00-0.10) Sodium Potassium Chloride Carbon Dioxide Anion Gap BUN Creatinine Estimated GFR Glucose Calcium Urine Opiates Screen Urine Barbiturates Valproic Acid Ur Phencyclidine Scrn Ur Amphetamine Screen U Benzodiazepines Scrn Urine Cocaine Screen U Marijuana (THC) Screen Ethyl Alcohol Departure - Departure Disposition: [facility] IP Clinical Impression: Bipolar 1 disorder, Polysubstance abuse Condition: Fair Instructions: Bipolar Disorder (ED), Polysubstance Abuse (ED) Referrals: Mary Anne Mckenzie [Primary Care Provider] - As per Instructions
--- NOTE | 2018-05-13 21:45 | ASMTTLCEVL ---
TLC Evaluation - Basic Information Evaluation Start Date and 05/13/2018 06:00 PM Time Hospital Status Answers: Voluntary Patient statement Notes: "I don't think that this is the correct dosage of medication. I'm taking way too much of my depakote; I've been taking diffrent dosages each time to see what will work best. I don't want to be sterile. I wanted to find out if I could decrease my depakote and gabapentin and have some benzodiazepines which were really helping me." Narrative Notes: The patient is a 23 YO male, single with no children, unemployed, with a HX of Bipolar I disorder, severe, with mood congruent psychotic features, cannabis use disorder, severe, stimulant use disorder, and hallucinogen disorder. He is living at home with his family in [place], [place]. The patient self presented accompanied by his mother after being released from group home yesterday. The patient was in group home for trespassing when he was found going through an open car. He reported that several people had told him that he was being gifted a car and that was the one that he thought best fit the description. The patient came to [facility] ED voluntarily to ask if he could be on lower doses of his medication. He reported that he is taking different dosages to determine which is best. Per MO, the patient has been staying up late and not sleeping; wandering the streets without shoes. He has been talking non stop disrupting the rest of the family when they are homeschooling or working from home. She reported that he will take different objects from around the house and create something with them; telling stories about the objects and loosely associating them. She reported that he is not taking his medication as prescribed including handing them out to people on the street. She reported past history of delusions including being a part of the [employer] and calling a hit on his family. 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 Diagnosis History Notes: The patient has a HX of Bipolar I disorder, severe, with mood congruent psychotic features, cannabis use disorder, severe, stimulant use disorder, and hallucinogen disorder. Prior suicide attempts Notes: The patient denied any prior suicide attempts. Prior hospitalizations Notes: The patient was hospitalized and discharged from on 05/01/2018. Prior to his [facility] admission, he was hospitalized and discharged from [facility] in March. Treatment Responses Notes: Unable to assess. History of violence Notes: The patient denied any homicidal ideation or previous HX of violence. Therapist: None Psychiatrist: None Medications (name, dosage, route, freq uency) Notes: Depakote, 2000mg, once daily, HS, PO Risperdal, unknown dosage once daily, PO Gabapentin, 600mg, three times daily, PO Allergies/Reaction Notes: No known allergies Sleep Notes: The patient denied has changes in sleep. Appetite Notes: The patient denied changes in appetite including weight loss or gain. Medical/Surgical history Notes: The patient denied any significant medical/surgical HX. Substance use history (frequency, intensity, his tory, duration) Notes: The patient reported that he has been abstaining from using substances per the inpatient nurse practitioner's recommendations. He has a HX of poly substance abuse. Family composition Notes: The patient has relatives in [place], [place], and [place]. His oldest sister (23) lives in [place]. He has two younger sisters (15, 18) who live at home with the patient and his parents in [place]. Need for family Answers: Yes participation in patient's care Family psychiatric/substance abuse history Notes: The patient reported that his maternal uncles abuse ETOH and THC. His paternal grandfather by suicide and his paternal aunt has unconfirmed Bipolar d/o. Developmental history Notes: The patient denied any developmental issues; he endorsed having dyslexia. The patient reported being diagnosed with ADHD. Abuse concerns Answers: None Marital status/children Notes: The patient is single with out children. Living situation Notes: He is living at home with his family in [place]. Sexual history/orientation Notes: Per [facility] previous record, "Active, Heterosexual." Peer support/family strengths Notes: The patient reported having a strong support system of friends and family. Education level/history Notes: The patient missed his last final to graduate with his associate degree from [employer]. 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 He reported receiving feedback that he had the skills. Notes: no known afiliation Legal Notes: The patient was arrested for trespassing on May 09 and released yesterday May 12. The patient was in group home for trespassing when he was found going through an open car. He reported that several people had told him that he was being gifted a car and that was the one that he thought best fit the description. Zoroastrian/Spiritual Notes: The patient reported none that would interfere with treatment. Leisure Notes: Per [facility] previous record, "Don't get arrested and smoke weed, I have to get out of here and go to a concert tonight." Collateral Notes: The collateral data was obtained from current and previous [facility] ED records/staff, and family members. Patient's strengths Answers: Good Friend to Others (Please select at least TWO strengths): Intelligent Supportive Family TLC Evaluation - Mental Status Exam Appearance: Answers: Appropriate Clean Eye Contact: Answers: Appropriate for Culture Good/Direct Mood: Answers: Euthymic Irritable Affect: Answers: Appropriate Apathetic Congruent w/ Mood Constricted Guarded Irritable Behavior: Answers: Appropriate Cooperative Guarded Manipulative Resistive to Care Talkative Speech: Answers: Relevant Logical Clear Coherent Rambling Thought Process: Answers: Organized Alert Goal Oriented Insight: Answers: Fair Judgement: Answers: Fair Manic Signs/Symptoms Answers: Distractibility Grandiosity Irritability Mood Swings Anxiety Signs/Symptoms Answers: Generalized Anxiety Hallucinations: Answers: None Delusions: Answers: Grandiose Current Stage of Change Answers: Precontemplation Pt reported to be making Answers: No suicidal/self-injuring threats? Pt reported to have Answers: No aggression/assault ideation/behavior? Pt reported to be making Answers: No aggression/assault threats? Ideation/behavior is Answers: No chronic? Patient has a specific Answers: No plan? Ideation involves Answers: No serious/lethal intent? Ideation has Answers: Yes delusional/hallucinatory content? History of Answers: Yes suicidal/self-injuring ideation, behavior, or threats? History of Answers: No aggressive/assaultive ideation, behavior, or threats? TLC Evaluation - Suicide/Homicide Risk Suicide Risk Factors: Answers: Alcohol/Heavy Drug Use Anxiety/Panic, Severe Bipolar Disorder Financial Difficulties Hx of Suicide Attempt by Family Member Lack/Loss of Employment Legal Difficulties School Difficulties Single Homicide/violence risk Answers: Heavy Alcohol Use factors: Heavy Drug Use Previous Hx of Violence Threats Towards Others Current Suicidal Answers: No Ideation? Current Suicidal Ideation Answers: No in the Past 48 Hours? Current Suicidal Ideation Answers: No in the Past Month? Current Suicidal Answers: No Ideation, Worst Ever? Suicide Internal Answers: Roxane with Stress Protective Factors: Suicide External Answers: Positive Therapeutic Protective Factors: Relationships Social Support Ranking of patient's Answers: Low suicidal risk: Ranking of patient's Answers: Low homicidal risk: TLC Evaluation - Wrap-up BDI Total Score: N/A BDI Question #2 Score: N/A BDI Question #9 Score: N/A BSS Total Score: N/A AXIS I Diagnosis (include DSM-V and ICD-10 codes), must also be entered in [facility], which is the source of truth. Notes: Bipolar I Disorder, with psychotic features 296.44 (F31.5) Evaluation End Date and 05/13/2018 08:35 PM Time (HH:MM): Date Signed: 05/13/2018 09:44 PM Electronically Signed By:Anahi Hanks
[2018-05-13 21:52] VITALS: BP 122/71
--- NOTE | 2018-05-13 21:52 | ASMTTCLDSP ---
TLC Discharge Disposition Disposition: Answers: Discharge If Answers: Yes DISCHARGED: Patient/family given suicide hotline info & SAMHSA brochure? Discharge Concerns/Recommendations: Notes: In consultation with [facility] ED physician, Raza Kay MD, and on-call psychiatrist, Kacey Abernathy MD, both concurred that the patient does not appear to meet 27-65 criteria requiring psychiatric hospitalization as patient does not appear to be an imminent risk of harm to self/others/gravely disabled due to a mental illness condition. The patient was offered voluntary mental health admission yet patient declined. The patient stated commitment or ability to keep self safe and denied thoughts of self harm or harm to others. The patient expressed a desire to f/u with [facility]. The patient took his evening medications with his parents and the nursing staff present. The patient and his family were given the information for [facility], [facility], [facility], and discussed resources for the family members including legal guardianship. Date Signed: 05/13/2018 09:51 PM Electronically Signed By:Anahi Hanks
== END 2018-05-13 21:50 | disposition home or self-care (01) ==
DX: F31.9 Bipolar disorder, unspecified (principal); F19.90 Other psychoactive substance use, unspecified, uncomplicated
CPT/HCPCS: 80305; G0480